=== PATIENT | female | born 1975 | race Caucasian/White ===

== ENCOUNTER 2023-09-06 14:25 | Emergency (ER) | payer OTHER, SELFPAY ==
--- NOTE | 2023-09-06 14:30 | RT.EKG_ITS ---
APPROVED REPORT Exam: Resting ECG Reason for Exam: chest pain Patient Location: E HR:72 bpm ECG Measurements Heart Rate 72 AXIS UT 169 P 59 QRSd 97 QRS 55 QT 389 T 39 QTc 427 Conclusion Sinus rhythm 72 normal axis no stemi
[2023-09-06 14:31] VITALS: BP 134/72; PULSE 79; RESP 18; TEMP 37.2; O2SAT 99
--- NOTE | 2023-09-06 14:46 | ED.GENADUL_ITS ---
Discharge Plan Disposition Patient Disposition: Home Condition: Stable Discharge Details Clinical Impression: Breast infection Primary Care Provider: Unknown,Unknown ED Provider: Karen Hoffman Home Meds and New Rx's Prescriptions: New clindamycin HCl 150 mg capsule 450 mg PO TID 10 Days Qty: 90 0RF ondansetron 4 mg tablet,disintegrating 4 mg PO Q8H PRN (Reason: nausea and vomiting) Qty: 30 0RF No Action fluoxetine 10 mg capsule 10 mg PO DAILY Discharge Instructions Instructions: Mastitis Additional Instructions: * Please start antibiotics as prescribed * Return with worsening symptoms, fever or inability to tolerate the medication * You need to follow-up with surgery clinic, referral has been placed and they should contact you for an appointment early next week Referrals: Kirit Briseno MD [ [facility] STAFF PHYSICIAN] - [facility] General Date/Time Provider Initiated Documentation: 09/06/23 14:55 . Limitations to Documentation: physical limitation . Information obtained by: patient and family . HPI Narrative: 48-year-old female with past medical history of long COVID and chronic Lyme disease presents for evaluation of left breast pain. She reports that last night she started having pain in her left breast. It was associated with swelling, tenderness and warmth. She reports not feeling well, having overall fatigue and chills. Denies any noted fever. Has not taken medication for this. She states that because she has long COVID, she has had recurrent infections in her breast and has had repeated workups for this. She has never had to have a surgical procedure to her breast. She reports that her last mammogram was over a year ago. She states that she was just seen at urgent care prior to this evaluation and was referred to the emergency department for further workup. She states that she was told she has a left ear infection as well and would need antibiotics for both things. Related Data Home Medications Medication Instructions Recorded Confirmed clindamycin HCl 150 mg capsule 450 mg (3 x 150 mg) PO TID 10 days 09/06/23 #90 caps fluoxetine 10 mg capsule 10 mg PO DAILY 09/06/23 09/06/23 ondansetron 4 mg disintegrating 4 mg PO Q8H PRN nausea and 09/06/23 tablet vomiting #30 tabs Previous Rx's Medication Instructions Recorded clindamycin HCl 150 mg capsule 450 mg (3 x 150 mg) PO TID 10 days 09/06/23 #90 caps ondansetron 4 mg disintegrating 4 mg PO Q8H PRN nausea and 09/06/23 tablet vomiting #30 tabs Allergies Allergy/AdvReac Type Severity Reaction Status Date / Time Penicillins Allergy Intermediate Other (See Verified 09/06/23 14:34 Comment) General Stated Complaint: GenMedical RORY: 3 Exam Narrative Exam Narrative: Review of Systems: All systems reviewed & are unremarkable except as noted in HPI and below Well-developed, no acute distress, laying in bed with eyes closed, listless, disengaged with conversation and physical examination Afebrile, hemodynamically stable NCAT PERRL, normal conjunctiva Bilateral TMs without bulging, erythema or effusion, canals normal No cervical adenopathy RRR, no murmur Unlabored respiratory effort, clear bilaterally Right breast with fibrous changes, no palpable mass or tenderness Left breast with 3 x 2 area of erythema at 12:00, there is induration in this area, no appreciable fluctuance, there is a small area of erythema around 2:00 that is approximately 2 x 2, general tenderness of the breast, no overlying skin disruption or open wounds, nipple is not retracted, there is no appreciable nipple drainage Breast examination performed in the presence of senior principal architect nurse Nondistended abdomen Extremities w/o deformity, no cyanosis, no edema no focal neurologic deficits Appropriate mood and affect Course Vital Signs Vital signs: Vital Signs Temperature 37.2 C 09/06/23 14:31 Pulse 79 09/06/23 14:31 Respiratory Rate 18 09/06/23 14:31 Blood Pressure 134/72 09/06/23 14:31 Pulse Oximetry 99 09/06/23 14:31 Temperature 37.2 C 09/06/23 14:31 Temperature Source Oral 09/06/23 14:31 Pulse 79 09/06/23 14:31 Respiratory Rate 18 09/06/23 14:31 Blood Pressure 134/72 09/06/23 14:31 Blood Pressure Position Sitting 09/06/23 14:31 Pulse Oximetry 99 09/06/23 14:31 Oxygen Delivery Method Room Air 09/06/23 14:31 Oxygen Flow Rate 0 09/06/23 14:31 Pain Level 8 09/06/23 14:31 Medical Decision Making Emergent evaluation of left breast pain. Examination is most concerning for infectious etiology of the breast whether this might be abscess, mastitis, inflammatory breast cancer less likely based on presentation. She is afebrile and hemodynamically stable. Her mental status and presentation seems not consistent with a serious bacterial illness, but more consistent with her diagnosis of chronic Lyme and long COVID. She does not have an ear infection as they reported from urgent care. I have advised the patient that there is no ultrasound capabilities available at this time. Her EKG is sinus 72 normal axis no STEMI. I do not suspect ACS or cardiac etiology of her left-sided chest pain. Will get blood work and reassess. Lab work reviewed. There is mild elevation in leukocytosis. Her electrolytes are without derangement. Her CRP is slightly elevated, procalcitonin is not elevated. I do not suspect serious bacterial illness. I advised the patient that she may have early breast abscess, I have referred her to general surgery for follow-up early this week. She has received a dose of IV clindamycin in the emergency department and will be discharged with clindamycin. She understands return precautions. And if this is an abscess, she likely will not do significant improvement on the oral antibiotics. Patient will be discharged in good condition. Medical Records Medical records reviewed: Yes I reviewed the patient's medical records. Lab Data Lab results reviewed: Yes I reviewed the patient's lab results. Quality:SDOH Health Related Social Needs: No Data to Display [facility] All Active Problems (Updated 09/06/23 @ 16:17 by Karen Hoffman MD) Breast infection (Acute) Social History Smoking/Tobacco Use Status: Never Smoking risk assessment performed?: Yes Alcohol Intake: never Substance use type: does not use Housing: house Do you feel safe at home: Yes Do you feel safe in your relationship?: Yes
[2023-09-06] MEDS: ACETAMINOPHEN 1,000 MG/100 ML BTL 400 MG IVPB (15:00)
[2023-09-06 15:19] LABS: Abs Immature Grans 0.04 10^3/uL (0.0-0.06); Absolute Basophil Count 0.05 10^3/uL (0.0-0.2); Absolute Lymphocyte Count 1.91 10^3/uL (1.2-3.4); Basophils % 0.4 %; Eosinophils % 0.7 %; HCT 38.2 % (36.0-46.0); HGB 13.1 g/dL (11.2-15.7); Immature Grans % 0.3 %; Lymphocytes % 13.9 %; MCH 30.7 pg (27.0-33.0); MCHC 34.3 % (32.0-36.0); MCV 90 fL (80-95); MPV 9.4 fL (8.0-11.0); Monocytes % 6.9 %; Neutrophils % 77.8 %; Platelet Count 277 10^3/uL (130-400); RBC 4.27 10^6/uL (3.93-5.22); RDW 12.5 % (11.7-14.6); RDW-SD 41.4 fL; WBC 13.71 10^3/uL (4.4-10.8)
[2023-09-06 15:24] LABS: ESR 4 mm/hr (0-20)
[2023-09-06 15:29] LABS: Absolute Monocyte Count 0.95 10^3/uL (0.1-0.8); Absolute Neutrophil Count 10.67 10^3/uL (1.2-6.7)
[2023-09-06 15:35] LABS: ALT 22 U/L (14-59); AST 13 U/L (15-37); Albumin 3.7 g/dL (3.4-5.0); Alkaline Phosphatase 56 U/L (46-116); Anion Gap 8.1 mmol/L (3-11); BUN 6 mg/dL (7-18); Bilirubin, Total 0.62 mg/dL (0.2-1.0); C-Reactive Protein 2.91 mg/dL (<or=0.5); CO2 27.9 mmol/L (21.0-32.0); CREATININE 0.7 mg/dL (0.55-1.02); Calcium 8.6 mg/dL (8.5-10.1); Chloride 103 mmol/L (98-107); Estimated GFR 105.95 (mL/min/1.73m2); Glucose 98 mg/dL (74-106); Potassium 3.9 mmol/L (3.5-5.1); Sodium 139 mmol/L (136-145); Total Protein 6.7 g/dL (6.4-8.2)
[2023-09-06 15:51] LABS: Procalcitonin < 0.1 ng/mL
[2023-09-06] MEDS: CLINDAMYCIN 600 MG/50 ML BAG 100 MG IVPB (16:13)
[2023-09-06] MEDS: Ondansetron 4 MG/2 ML VIAL IVP (16:13)
[2023-09-06 16:40] VITALS: BP 134/72; PULSE 79; RESP 18; TEMP 37.2; O2SAT 99
--- NOTE | 2023-09-06 17:35 | NUR.NOTE ---
Referral to surgery for a breast abscess. Follow up [facility]. Referred by Dr. Hoffman. Nursing Note:
== END 2023-09-06 17:03 | disposition home or self-care (01) ==
PROVIDERS: Emergency Provider Emergency Medicine
DX: N61.0 Mastitis without abscess (principal)
CPT/HCPCS: 36415; 80053; 81025; 84145; 85652; 93005; 96365; 96367; 96375; 99284; 85025; 86140; 93010; 99283; J0131; J0737; J2405

== ENCOUNTER 2023-09-09 18:21 | Observation (INO) | payer OTHER, SELFPAY ==
--- NOTE | 2023-09-09 18:25 | W.PM.HP.N ---
Date of service: 09/09/23 Time of Service: 18:32 Assessment and Plan Assessment and plan (1) Breast abscess: Status: Acute Assessment and plan: This seems most consistent with a left breast abscess that has not adequately responded to enteral antibiotics. Will admit for intravenous antibiotics and formal ultrasound left breast to rule out other pathology. If there is significant abscess cavity, then we will plan for incision and drainage assuming she makes no improvement with the intravenous clindamycin. History of Present Illness History of Present Illness Chief Complaint: Left breast pain Narrative: Cheyenne is a 48-year-old woman who initially presented to the emergency department on the sixth with a chief complaint of pain in her left breast. This was similar in nature to breast infections that she has had on the contralateral side. She was found have a leukocytosis of 13,000, and discharged home with oral clindamycin. Since her discharge from the emergency department, she has had some increased fatigue and subjective fevers. She was able to start the clindamycin. She does think that the erythema has improved a little bit, but the breast is still quite painful and tender to the touch. Fatigue and lethargy are concerning for ongoing sepsis. Will admit for intravenous antibiotics, formal ultrasound, and possible incision and drainage of abscess. Review of Systems Constitutional Constitutional: Reports fatigue, Reports fever(s), Reports lethargy, Reports malaise and Reports poor appetite Eyes Eyes: Reports system reviewed and no additional complaints, except as documented ENT Comments: Swollen lymph nodes Cardiovascular Cardiovascular: Reports system reviewed and no additional complaints, except as documented Respiratory Respiratory: Denies chest congestion and Denies cough Gastrointestinal Gastrointestinal: Reports system reviewed and no additional complaints, except as documented Integumentary/Breasts Skin/Breast: Reports breast swelling and Reports breast mass Neurologic Neurologic: Reports system reviewed and no additional complaints, except as documented Endocrine Endocrine: Reports fatigue Hematologic/Lymphatic Hematologic/Lymphatic: Reports lymphadenopathy PFSH All Active Problems (Updated 09/09/23 @ 15:49 by KARYN Colon) Breast abscess (Acute) Infection of left breast (Acute) Breast cyst (Acute) Breast infection (Acute) Social History Smoking/Tobacco Use Status: Never Smoking risk assessment performed?: Yes Alcohol Intake: never Substance use type: does not use Housing: house Do you feel safe at home: Yes Do you feel safe in your relationship?: Yes Meds Allergies and Home Medications Allergies Allergy/AdvReac Type Severity Reaction Status Date / Time Penicillins Allergy Intermediate Other (See Verified 09/06/23 14:34 Comment) Home Medications Medication Instructions Recorded Confirmed Type clindamycin HCl 150 mg capsule 450 mg (3 x 150 mg) PO TID 10 days 09/06/23 09/09/23 Rx #90 caps fluoxetine 10 mg capsule 10 mg PO DAILY 09/06/23 09/09/23 History ondansetron 4 mg disintegrating 4 mg PO Q8H PRN nausea and 09/06/23 09/09/23 Rx tablet vomiting #30 tabs Exam Const General: cooperative, comfortable and ill appearing Nutritional Appearance: average body habitus Orientation: alert, awake and oriented x3 HENMT Head: normal to inspection Eyes General: appearance normal, both eyes and all related structures Neck Neck: normal visual inspection, full ROM and supple Other: I am not able to appreciate cervical lymphadenopathy Chest Other: Erythema over the upper outer quadrant of the left breast with induration of the soft tissues. Mild tender left axillary lymphadenopathy Resp Effort & Inspection: normal respiratory effort Auscultation: clear to auscultation bilaterally Cardio Rate: regular rate Rhythm: regular rhythm Heart Sounds: S1 normal and S2 normal Results Labs 09/10/23 Unknown Time Spent Time spent with Patient: 40-54 minutes Time was spent: preparing to see the patient(eg.review tests), ordering medications,tests, procedures, indepentently interpreting results, counseling the patient and care coordination
[2023-09-09 19:34] VITALS: BP 112/68; PULSE 67; RESP 19; TEMP 37; O2SAT 100
[2023-09-09 20:52] VITALS: BP 112/68; PULSE 67; RESP 18; TEMP 37; O2SAT 100
[2023-09-09 21:12] VITALS: BP 112/68; PULSE 67; RESP 19; TEMP 37; O2SAT 100
[2023-09-09] MEDS: Acetaminophen 500 MG TAB 1000 MG PO (22:11)
[2023-09-09] MEDS: Enoxaparin 40 MG/0.4 ML SYR SC (22:11)
[2023-09-09] MEDS: Lactated Ringers 1,000 ML 30 ML IV (22:24)
[2023-09-09] MEDS: Normal Saline Flush 10 ML SYR IVP (22:24)
[2023-09-09] MEDS: CLINDAMYCIN 900 MG/50 ML BAG 50 MG IVPB (22:53)
[2023-09-09] MEDS: Ondansetron 4 MG/2 ML VIAL IVP (22:53)
[2023-09-09 23:25] VITALS: BP 100/58; PULSE 69; RESP 19; TEMP 36.9; O2SAT 98
--- NOTE | 2023-09-10 | DI.US_ITS ---
Exam(s) US BREAST LT COMPLETE EXAM: US BREAST LT COMPLETE CLINICAL HISTORY: Abscess TECHNIQUE: Ultrasound left breast performed using standard protocol. COMPARISON: No exams were available for comparison FINDINGS: In the area of patient tenderness, there is an irregular hypoechoic collection measuring 1.5 x 2.0 x 2.2 cm which is suspicious for an abscess. It is located in the 11 o'clock position of the upper out er quadrant, 4 cm from the nipple. Multiple cysts were noted. There is no ductal dilatation. No s uspicious solid masses or skin edema. There is a lymph node in the upper outer quadrant, 1 o'clock p osition 7 cm from the nipple which appears hyperemic, consistent with a reactive lymph node. IMPRESSION: Findings suspicious for 2.2 centimeter abscess in the upper inner quadrant. Reactive lymph node in t he upper outer quadrant. DATA REPOSITORY:
[2023-09-10] MEDS: Acetaminophen 500 MG TAB 1000 MG PO ×3 (03:55→20:51)
[2023-09-10] MEDS: CLINDAMYCIN 900 MG/50 ML BAG 50 MG IVPB ×3 (05:54→20:51)
[2023-09-10 07:34] LABS: Abs Immature Grans 0.04 10^3/uL (0.0-0.06); Absolute Basophil Count 0.06 10^3/uL (0.0-0.2); Absolute Eosinophil Count 0.31 10^3/uL (0.0-0.7); Absolute Lymphocyte Count 2.14 10^3/uL (1.2-3.4); Absolute Monocyte Count 0.74 10^3/uL (0.1-0.8); Absolute Neutrophil Count 6.51 10^3/uL (1.2-6.7); Basophils % 0.6 %; Eosinophils % 3.2 %; HCT 32.2 % (36.0-46.0); Immature Grans % 0.4 %; Lymphocytes % 21.8 %; MCH 30.5 pg (27.0-33.0); MCHC 34.2 % (32.0-36.0); MCV 89 fL (80-95); MPV 9.9 fL (8.0-11.0); Monocytes % 7.6 %; Neutrophils % 66.4 %; Platelet Count 256 10^3/uL (130-400); RBC 3.61 10^6/uL (3.93-5.22); RDW 12.2 % (11.7-14.6); RDW-SD 40.1 fL
[2023-09-10 07:58] VITALS: BP 101/62; PULSE 62; RESP 16; TEMP 37.1; O2SAT 96
--- NOTE | 2023-09-10 08:10 | W.PM.PROGNOT ---
Date of Service Date of service: 09/10/23 Time of Service: 08:10 Assessment and Plan Assessment and plan (1) Breast abscess: Status: Acute Assessment and plan: NPO Continue IV clindamycin WBC normalized Awaiting left breast US scheduled for later today Strongly encouraged activity OOB, ambulation in the amin way and sitting in the chair Subjective Subjective Interval history since last seen: Arrive with Keisha resting comfortably. She states she is feeling better this morning. Describes that she was able to get some sleep last night. Exam Const General: cooperative, healthy appearing and comfortable Orientation: alert and oriented x3 Resp Effort & Inspection: normal respiratory effort, no audible wheezes and no cough Objective Last Vital Signs Temp 37.1 C 09/10/23 07:58 Pulse 62 09/10/23 07:58 Resp 16 09/10/23 07:58 BP 101/62 09/10/23 07:58 Pulse Ox 96 09/10/23 07:58 Laboratory Results - last 24 hr 09/10/23 06:35 WBC 9.80 RBC 3.61 L Hgb 11.0 L Hct 32.2 L MCV 89 MCH 30.5 MCHC 34.2 RDW 12.2 Plt Count 256 MPV 9.9 Immature Gran % 0.4 Neutrophils % 66.4 Lymphocytes % 21.8 Monocytes % 7.6 Eosinophils % 3.2 Basophils % 0.6 Nucleated RBC % 0.0 Absolute Neutrophils 6.51 Absolute Lymphocytes 2.14 Absolute Monocytes 0.74 Absolute Eosinophils 0.31 Absolute Basophils 0.06 Time Spent with Patient Time Spent with Patient: <25 minutes Time was spent: preparing to see the patient(eg.review tests), indepentently interpreting results and counseling the patient
[2023-09-10] MEDS: Fluconazole 150 MG TAB PO (10:50)
[2023-09-10] MEDS: Ondansetron 4 MG/2 ML VIAL IVP ×2 (10:56→20:57)
[2023-09-10] MEDS: Normal Saline Flush 10 ML SYR IVP ×2 (10:57→20:52)
--- NOTE | 2023-09-10 11:35 | PHA.REVIEW2 ---
Pharmacy Admission Review Admission Clinical Review Admission Pharmacy Review: Breast abscess (Acute) Penicillins Allergy (Intermediate, Verified 09/06/23 14:34) Other (See Comment) Resuscitation Status Full Code Height 5 ft 8 in Weight 78 kg Comments Comments/Follow Ups: Watch VS, labs and for med changes. Pharmacy Admission Review Renal Dosing Medications needing adjustments: Reviewed (Crcl ~106 mL/min using SCr from 09/06/23, current meds okay) Anticoagulation Anticoagulation: Hgb 11.0 g/dL (11.2-15.7) L 09/10/23 06:35 Hct 32.2 % (36.0-46.0) L 09/10/23 06:35 Plt Count 256 10^3/uL (130-400) 09/10/23 06:35 DVT Prophylaxis: Reviewed Medications: Enoxaparin Opiate Usage Evaluate Pain Scale/Pains Meds: Reviewed Scheduled Bowel Reg ordered if on Opiates?: Yes Relevant Labs Electrolytes, C-Reactive P, ESR: N/A DM Control DM Control: N/A Cardiac Review BP, HR, EF%: Reviewed (BP and HR within normal limits) QTc Review QTc: N/A IV to PO Switch IV Medications: Reviewed Home Meds Home Med List reviewed: Reviewed Relevent Home Meds Not ordered & why?: fluoxetine Current Meds Current Medication Order Review: Reviewed Pharmacy Antibiotic Review Pharmacy Antibiotic Activity: Reviewed, no change Comments: IV clindamycin ordered for abscess Comments Comments/Follow Ups: Watch VS, labs and for med changes.
[2023-09-10 15:07] VITALS: BP 109/72; PULSE 67; RESP 18; TEMP 36.8; O2SAT 100
--- NOTE | 2023-09-10 15:54 | INITIAL_ITS ---
Date of service: 09/10/23 Time of Service: 15:55 Care Management Initial Assmt Initial Assessment Reason for Hospitalization: Left Breast Abscess Functional Status/Living Situation Patient Presentation: Up independently Town of Residence: [place], [place] Resides with: Spouse (Vish) Significant Other/Family: Local (to patient, not [place]. ) Instrumental Activities of Daily Living (ADLs): Independent Medications Medication Management: No Issues/Barriers identified Advance Directives Advance Directives: Do you have an Advance Directive: N 09/09/23 19:26 AD On File at [facility]: N 09/09/23 19:26 Date Asked 09/09/23 09/09/23 19:26 AD Date Reviewed COLST On File at [facility] COLST Date Scanned Code Status Resuscitation Status Full Code Portal Pt does not currently have a portal and education provided: No Portal Education: Other (Out of area) Insurance Coverage/Financial Issues Insurance: HPI: Non [facility] ACO Member: No Care Team Visit Care Team Role Provider Type Unknown Unknown Primary Care Provider STAFF PHYSICIAN Sukumar Lombardo MD Admit Provider [facility] STAFF PHYSICIAN Attending Provider Discharge Potential Discharge Needs: Consult and Imaging/labs (Ultrasound) Anticipated Barriers to Discharge: Medical Status (Oral abx treatment failed in community) and Treatment delay (Ultrasound ) Patient/Family Education Needs: Review discharge instructions, discuss Ask Me Three Transportation: Private vehicle Plan: Awaiting ultrasound to determine plan of care. Patient is independent, up ad cecilio. She is requiring IV ABX at this time. CM following. [facility] All Active Problems (Updated 09/09/23 @ 15:49 by KARYN Colon) Breast abscess (Acute) Infection of left breast (Acute) Breast cyst (Acute) Breast infection (Acute) Social History Smoking/Tobacco Use Status: Never Smoking risk assessment performed?: Yes Alcohol Intake: never Substance use type: does not use Housing: house Do you feel safe at home: Yes Do you feel safe in your relationship?: Yes SDOH(Care Management) Screening Will the Patient Participate in the Screening?: Yes Do you worry about having a steady place to live?: no In the past 12 months, have you had to go without electric, gas, oil or water in your home?: no Have you or anyone in your house had to go without enough food to eat?: no Has lack of transportation kept you from medical appointments or from doing things needed for daily living?: no Has anyone in your support network made you feel unsafe for any reason?: no
--- NOTE | 2023-09-10 16:50 | CHAPLAIN ---
Keisha was resting in bed when I visited. She told me about in infection. She's had COVID four times she said, and has continued to get infections. 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 She and her two kids are visiting her mom in [facility]. Keisha has visited here since she was young and her kids enjoy being here. Keisha has a strong commitment to her rohith and a morning ritual of prayer and conversation with God. I explained my role and offered support.
[2023-09-10 19:37] VITALS: BP 108/70; PULSE 75; RESP 16; TEMP 37.1; O2SAT 99
[2023-09-10] MEDS: Melatonin 3 MG TAB PO (20:51)
[2023-09-10] MEDS: Enoxaparin 40 MG/0.4 ML SYR SC (20:52)
--- NOTE | 2023-09-10 21:03 | W.PM.PROGNOT ---
Date of Service Date of service: 09/10/23 Time of Service: 11:50 Assessment and Plan Assessment and plan (1) Breast abscess: Status: Acute Assessment and plan: Continue with intravenous antibiotics overnight, and repeat a CBC tomorrow. If the white blood cell count remains normal, and hemodynamics are favorable, will plan to discharge home, and continue oral antibiotics. Subjective Subjective Interval history since last seen: Keisha says that she is feeling much better. Energy is returning and the pain in her breast has improved. Exam Chest Other: Left breast remains swollen, and batch or continuous still operator. Less erythema on the skin. Objective Last Vital Signs Temp 98.8 F 09/10/23 19:37 Pulse 75 09/10/23 19:37 Resp 16 09/10/23 19:37 BP 108/70 09/10/23 19:37 Pulse Ox 99 09/10/23 19:37 Laboratory Results - last 24 hr 09/10/23 06:35 WBC 9.80 RBC 3.61 L Hgb 11.0 L Hct 32.2 L MCV 89 MCH 30.5 MCHC 34.2 RDW 12.2 Plt Count 256 MPV 9.9 Immature Gran % 0.4 Neutrophils % 66.4 Lymphocytes % 21.8 Monocytes % 7.6 Eosinophils % 3.2 Basophils % 0.6 Nucleated RBC % 0.0 Absolute Neutrophils 6.51 Absolute Lymphocytes 2.14 Absolute Monocytes 0.74 Absolute Eosinophils 0.31 Absolute Basophils 0.06 Time Spent with Patient Time Spent with Patient: <25 minutes Time was spent: preparing to see the patient(eg.review tests), indepentently interpreting results and counseling the patient
[2023-09-10 23:42] VITALS: BP 104/66; PULSE 59; RESP 19; TEMP 36.9; O2SAT 97
[2023-09-11] MEDS: CLINDAMYCIN 900 MG/50 ML BAG 50 MG IVPB ×3 (04:50→13:20)
[2023-09-11] MEDS: Acetaminophen 500 MG TAB 1000 MG PO ×2 (04:50→12:21)
[2023-09-11 06:59] LABS: HGB 11.3 g/dL (11.2-15.7); MCH 30.4 pg (27.0-33.0); MCHC 34.2 % (32.0-36.0); MCV 89 fL (80-95); MPV 9.7 fL (8.0-11.0); Platelet Count 320 10^3/uL (130-400); RBC 3.72 10^6/uL (3.93-5.22); RDW 12.2 % (11.7-14.6); RDW-SD 40.1 fL
[2023-09-11 08:05] VITALS: BP 117/61; PULSE 65; RESP 16; TEMP 37.1; O2SAT 98
[2023-09-11] MEDS: Normal Saline Flush 10 ML SYR IVP (08:54)
[2023-09-11] MEDS: Psyllium PKT 1 EACH PO (08:54)
--- NOTE | 2023-09-11 09:50 | W.PM.PROGNOT ---
Date of Service Date of service: 09/11/23 Time of Service: 09:50 Assessment and Plan Assessment and plan (1) Breast abscess: Status: Acute Assessment and plan: Normalization of WBC, significant improvement in Keisha's symptoms. Regular diet Continue IV clindamycin dosing for today, transtion to PO clindamycin Strongly encouraged activity OOB, ambulation in the amin way and sitting in the chair Tentatively d/c home later today. Subjective Subjective Interval history since last seen: Keisha reports that she is feeling significantly better this morning. She denies any nausea, vomiting, fevers or chills. Exam Const General: cooperative, healthy appearing and comfortable Orientation: alert and oriented x3 Chest Other: Left breast- No erythema Significant induration on palpation. Lymphadenopathy noted in left axilla Resp Effort & Inspection: normal respiratory effort, no audible wheezes and no cough Objective Last Vital Signs Temp 37.1 C 09/11/23 08:05 Pulse 65 09/11/23 08:05 Resp 16 09/11/23 08:05 BP 117/61 09/11/23 08:05 Pulse Ox 98 09/11/23 08:05 Laboratory Results - last 24 hr 09/11/23 06:12 WBC 9.00 RBC 3.72 L Hgb 11.3 Hct 33.0 L MCV 89 MCH 30.4 MCHC 34.2 RDW 12.2 Plt Count 320 MPV 9.7 Time Spent with Patient Time Spent with Patient: <25 minutes Time was spent: preparing to see the patient(eg.review tests), obtaining and/or reviewing separately otained hiistory and counseling the patient
--- NOTE | 2023-09-11 13:11 | DSE_ITS ---
Date of service: 09/11/23 Time of Service: 13:11 DS: Diagnosis Discharge Diagnosis (1) Breast abscess: Status: Acute Asessment and Plan: d/c home Discharge Plan Disposition Patient Disposition: Home Condition: Improving Discharge Details Reason For Visit: left breast abscess Admit Date/Time: 09/09/23 18:21 Admit Provider: Sukumar Lombardo Attending Provider: Sukumar Lombardo Primary Care Provider: Unknown,Unknown Hospital Course Hospital Course: Keisha is 48 years old. She developed swelling and pain of the left breast. She had a leukocytosis and was discharged from the ER with enteral clindamycin. Although she was able to start her antibiotics, she continued to feel lethargic and feverish. She was seen in the office, and a limited ultrasound was performed confirming the presence of fluid collection in the left breast consistent with a left breast abscess. She was admitted to the hospital, started on intravenous clindamycin. Within 24 hours, she had an improvement in her leukocytosis, and rapidly began to feel better. She underwent a formal ultrasound that again seemed most consistent with a simple left breast abscess. After another night of intravenous antibiotics she was feeling much better. Pain was improving. She was discharged home to complete her oral clindamycin regimen. Home Meds and New Rx's Prescriptions: No Action fluoxetine 10 mg capsule 10 mg PO DAILY clindamycin HCl 150 mg capsule 450 mg PO TID 10 Days Qty: 90 0RF ondansetron 4 mg tablet,disintegrating 4 mg PO Q8H PRN (Reason: nausea and vomiting) Qty: 30 0RF Discharge Instructions Additional Instructions: Keisha, it was a pleasure meeting you and your , and I am glad that you are starting to feel better. As we discussed, you seem to have a simple abscess of the left breast, Which is now responding more favorably to the antibiotics. Hopefully, with the intravenous doses that you received, it was enough to help you get ahead of the infection. I am optimistic that the oral antibiotics will take care of it at this point. Your previously prescribed 450 mg (3 150 mg tablets) 3 times every day. I would like to increase this dosing to 4 times a day, or every 6 hours, which is more roma to what you are receiving in the hosp ital by way of the intravenous. Like we talked about beforehand, I would plan to continue this for the next 7 days, or as close as you can get with the prescription that you have left.. I think that your prescription will cover this. If we are way off, please let me know, and I can always call in a prescription wherever you are at the time. Please let me know if you start to feel sick again, with fevers, malaise, or just generally feeling crummy like you had been. I would expect your breast to remain fairly tender and painful over the next few days, but it should be getting a little easier day by day. If you need anything at all, or have any questions at all, please feel free to call me. My cell phone is [phone], or you can reach the office at [phone] it is probably a smart move to let her primary care doctor know what has been going on regardless of how you are feeling just to keep them up-to-date. I am more than happy to have the office set up an appointment for you when you are back in town if you find that helpful. Alternatively, if you are feeling back to your normal self, there is no need to specifically come in to see us. Activity:: Activity as Tolerated Equipment/Supplies:: No Equipment Needed Diet:: As Tolerated DS: Summary Time Spent with Patient providing and/or coordinating discharge services: Less than 30 minutes Status at Discharge Functional status at discharge: independent ambulation Overall status at discharge: patient is progressing back to baseline Mental Status: mental status grossly normal Speech and Movement: speech and movement normal Mood: congruent mood Affect: normal affect Quality:SDOH Health Related Social Needs: No Data to Display Exam Chest Other: The left breast is still a little bit swollen and tender with some underlying induration. Erythema on the skin is completely resolved. Lymphadenopathy seems a little better. Psych Mental Status: mental status grossly normal Speech and Movement: speech and movement normal Mood: congruent mood Affect: normal affect DS: Data Vitals/I&O Vitals and I&O: Vital Signs Temperature 98.8 F 09/11/23 08:05 Temperature Source Temporal Artery Scan 09/11/23 08:05 Pulse 65 09/11/23 08:05 Pulse Rhythm Regular 09/11/23 09:07 Respiratory Rate 16 09/11/23 08:05 Respiratory Effort Normal, Non-Labored 09/11/23 09:07 Respiratory Depth Normal 09/11/23 09:07 Respiratory Pattern Normal 09/11/23 09:07 Blood Pressure 117/61 09/11/23 08:05 Pulse Oximetry 98 09/11/23 08:05 Oxygen Delivery Method Room Air 09/11/23 08:05 Oxygen Flow Rate 0 09/11/23 08:05 Pain Level 0 09/11/23 08:05 Comment patient breathing freely on room air 09/09/23 21:12 Intake & Output 09/10/23 09/11/23 09/11/23 23:59 11:59 23:59 Intake Total 460 / 860.5 100 / 100 Balance 460 / 860.5 100 / 100 Intake: IV 100 / 500.5 100 / 100 Oral 360 / 360 Other: Urine Appearance Clear Comment Independent. Voiding Methods Toilet Data Completed and Pending Labs on day of discharge: Labs from last 24 hours 09/11/23 06:12 WBC 9.00 RBC 3.72 L Hgb 11.3 Hct 33.0 L MCV 89 MCH 30.4 MCHC 34.2 RDW 12.2 Plt Count 320 MPV 9.7 PFSH All Active Problems Breast abscess (Acute) Infection of left breast (Acute) Breast cyst (Acute) Breast infection (Acute) Social History Smoking/Tobacco Use Status: Never Smoking risk assessment performed?: Yes Alcohol Intake: never Substance use type: does not use Housing: house Do you feel safe at home: Yes Do you feel safe in your relationship?: Yes Time Spent with Patient Time Spent with Patient: <45 minutes Time was spent: preparing to see the patient(eg.review tests), indepentently interpreting results and counseling the patient
--- NOTE | 2023-09-11 13:59 | CMDISCH_ITS ---
Date of service: 09/11/23 Time of Service: 13:59 LACE Index Scoring Tool Questions: Length of Stay (in days): 2 Was the patient admitted via the E.D.?: No E.D. Visits: 1 Answers: Total Score: 3 Risk of Readmission: Low Risk Care Management Discharge Plan Reason for Hospitalization: left breast abscess Discharge Plan: Keisha will return home with no new services. Her will drive her home via private vehicle. She will follow up with surgical services and discharge plan of care. Patient/Family Education Needs: Review discharge instructions and limitations, discussion of self care needs including ask me three. [facility] Health Related Social Needs: No Data to Display
== END 2023-09-11 15:24 | disposition home or self-care (01) ==
PROVIDERS: Admitting Provider Surgery; Visit Provider Surgery
DX: N61.1 Abscess of the breast and nipple (principal); N64.4 Mastodynia; D72.829 Elevated white blood cell count, unspecified
CPT/HCPCS: 36415; 76642; 85027; 96365; 96366; 96372; 96375; 96376; J1650; 85025; G0378; J0737; J2405

== ENCOUNTER 2024-09-08 10:31 | Emergency (ER) | payer BC, SELFPAY ==
[2024-09-08 10:37] VITALS: BP 131/68; PULSE 64; RESP 18; TEMP 36.7; O2SAT 98
--- NOTE | 2024-09-08 11:00 | DI.US_ITS ---
Exam(s) US BREAST LT LIMITED EXAM: US BREAST LT LIMITED CLINICAL HISTORY: eval abscess, left upper outer quad TECHNIQUE: Ultrasound left breast performed using standard protocol. COMPARISON: US US BREAST LT COMPLETE from 09/10/2023 FINDINGS: No solid masses, hypoechoic foci, areas of abnormal shadowing, or areas of skin thickening. The region of the palpable abnormality corresponds to a 2.8 centimeter cyst. No features to suggest abscess. No visible hyperemia in the surrounding tissue. There is an additional 9 millimeter cyst in the 1 o'clock position 5 cm from the nipple. The cyst with layering debris is noted in the 2 o'clock position 8 cm from the nipple measuring 11 millimeters in maximal dimension. There are dilated ducts in the subareolar region, dilated to 5 millimeters. IMPRESSION: 2.8 centimeter cyst corresponds to the palpable abnormality. No abscess is identified. There are dilated ducts in the subareolar region. BI-RADS Category 2 - Benign Findings DATA REPOSITORY:
[2024-09-08] MEDS: ACETAMINOPHEN 1,000 MG/100 ML BAG 400 MG IVPB (12:12)
[2024-09-08 12:21] LABS: Abs Immature Grans 0.03 10^3/uL (0.0-0.06); HCT 42.9 % (36.0-46.0); HGB 14.6 g/dL (11.2-15.7); Immature Grans % 0.4 %; MCH 31.2 pg (27.0-33.0); MCHC 34.0 % (32.0-36.0); MCV 92 fL (80-95); MPV 9.6 fL (8.0-11.0); Platelet Count 279 10^3/uL (130-400); RBC 4.68 10^6/uL (3.93-5.22); RDW 12.5 % (11.7-14.6); RDW-SD 42.0 fL; WBC 7.29 10^3/uL (4.4-10.8)
[2024-09-08 12:25] LABS: ESR 3 mm/hr (0-20)
[2024-09-08] MEDS: CLINDAMYCIN 600 MG/50 ML BAG 100 MG IVPB (12:32)
[2024-09-08 12:34] LABS: ALT 24 U/L (14-59); AST 14 U/L (15-37); Albumin 4.3 g/dL (3.4-5.0); Alkaline Phosphatase 61 U/L (46-116); Anion Gap 11.3 mmol/L (3-11); BUN 8 mg/dL (7-18); Bilirubin, Total 0.9 mg/dL (0.2-1.0); C-Reactive Protein < 0.50 mg/dL (<or=0.5); CO2 27.7 mmol/L (21.0-32.0); Calcium 9.0 mg/dL (8.5-10.1); Chloride 103 mmol/L (98-107); Estimated GFR 105.30 (mL/min/1.73m2); Glucose 101 mg/dL (74-106); Potassium 3.6 mmol/L (3.5-5.1); Sodium 142 mmol/L (136-145); Total Protein 7.6 g/dL (6.4-8.2)
[2024-09-08 12:43] LABS: Procalcitonin < 0.10 ng/mL
[2024-09-08 13:07] LABS: COVID-19 PCR Negative (Negative); RSV PCR Negative (Negative)
[2024-09-08 13:55] VITALS: BP 116/74; PULSE 57; RESP 16; O2SAT 98
--- NOTE | 2024-09-08 14:32 | W.ED.GENAD ---
Discharge Plan Disposition Patient Disposition: Home Condition: Stable Discharge Details Clinical Impression: Breast cyst Primary Care Provider: Unknown,Unknown ED Provider: Karen Hoffman Home Meds and New Rx's Prescriptions: New clindamycin HCl [Cleocin HCl] 150 mg capsule 450 mg PO TID 7 Days Qty: 63 0RF No Action fluoxetine 10 mg capsule 10 mg PO DAILY ondansetron 4 mg tablet,disintegrating 4 mg PO Q8H PRN (Reason: nausea and vomiting) Qty: 30 0RF Discharge Instructions Additional Instructions: NO SIGNS OF INFECTION AT THIS TIME, LAB WORK IS ALL NORMAL ULTRASOUND SHOWS A CYST, BUT NOT CONSISTENT WITH ABSCESS COVID TEST NEGATIVE MONITOR SYMPTOMS CLOSELY AND FOLLOW UP WITH PCP HPI General Date/Time Provider Initiated Documentation: 09/08/24 10:45. Limitations to Documentation: no limitations. Information obtained by: patient. HPI Narrative: 49-year-old female with past medical history of breast abscesses presents for evaluation of fever, left breast pain. She reports that 4 days ago she started having some fever body aches and she is also noted that she had an area of discomfort swelling tenderness on her left breast. She reports that she has had prior abscess and was concerned for that. She states that she also had an exposure to a family member that was having URI symptoms. She states that she has not been having any URI symptoms, but did measure temperature of 101 at home. She reports that she has pain localized to the left breast there is a discrete noted mass. She reports that with prior abscesses she has had overlying skin changes, but has not noted that today. Related Data Home Medications ?Medication ?Instructions ?Recorded ?Confirmed fluoxetine 10 mg capsule 10 mg PO DAILY 09/06/23 09/08/24 ondansetron 4 mg disintegrating 4 mg PO Q8H PRN nausea and 09/06/23 09/08/24 tablet vomiting #30 tabs clindamycin HCl 150 mg capsule 450 mg (3 x 150 mg) PO TID 7 days 09/08/24 (Cleocin HCl) #63 caps Previous Rx's ?Medication ?Instructions ?Recorded ondansetron 4 mg disintegrating 4 mg PO Q8H PRN nausea and 09/06/23 tablet vomiting #30 tabs clindamycin HCl 150 mg capsule 450 mg (3 x 150 mg) PO TID 7 days 09/08/24 (Cleocin HCl) #63 caps Allergies Allergy/AdvReac Type Severity Reaction Status Date / Time Penicillins Allergy Intermediate Other (See Verified 09/08/24 10:41 Comment) General Stated Complaint: GenMedical RORY: 3 Exam Narrative Exam Narrative: Review of Systems: All systems reviewed & are unremarkable except as noted in HPI and below Well-developed, no acute distress NCAT Afebrile PERRL, normal conjunctiva RRR Unlabored respiratory effort clear bilaterally Left breast with a 2 x 2 area of firmness and tenderness, feels discrete, does not feel fluctuant, no overlying skin changes Course Vital Signs Vital signs: Vital Signs Temperature 36.7 C 09/08/24 10:37 Pulse 64 09/08/24 10:37 Respiratory Rate 18 09/08/24 10:37 Blood Pressure 131/68 09/08/24 10:37 Pulse Oximetry 98 09/08/24 10:37 Temperature 36.7 C 09/08/24 10:37 Temperature Source Tympanic 09/08/24 10:37 Pulse 57 L 09/08/24 13:55 Respiratory Rate 16 09/08/24 13:55 Blood Pressure 116/74 09/08/24 13:55 Blood Pressure Position Supine 09/08/24 10:37 Pulse Oximetry 98 09/08/24 13:55 Oxygen Delivery Method Room Air 09/08/24 10:37 Oxygen Flow Rate 0 09/08/24 10:37 Pain Level 4 09/08/24 10:37 Lab/Test Results Lab/Test Results: Laboratory Tests Range/Units 09/08/24 09/08/24 12:02 12:16 WBC (4.4-10.8) 10^3/uL 7.29 RBC (3.93-5.22) 10^6/uL 4.68 Hgb (11.2-15.7) g/dL 14.6 Hct (36.0-46.0) % 42.9 MCV (80-95) fL 92 MCH (27.0-33.0) pg 31.2 MCHC (32.0-36.0) % 34.0 RDW (11.7-14.6) % 12.5 Plt Count (130-400) 10^3/uL 279 MPV (8.0-11.0) fL 9.6 Immature Gran % % 0.4 Neutrophils % % 63.8 Lymphocytes % % 25.5 Monocytes % % 6.2 Eosinophils % % 3.3 Basophils % % 0.8 Nucleated RBC % (0.0-0.3) % 0.0 Absolute Neutrophils (1.2-6.7) 10^3/uL 4.65 Absolute Lymphocytes (1.2-3.4) 10^3/uL 1.86 Absolute Monocytes (0.1-0.8) 10^3/uL 0.45 Absolute Eosinophils (0.0-0.7) 10^3/uL 0.24 Absolute Basophils (0.0-0.2) 10^3/uL 0.06 ESR (0-20) mm/hr 3 Sodium (136-145) mmol/L 142 Potassium (3.5-5.1) mmol/L 3.6 Chloride (98-107) mmol/L 103 Carbon Dioxide (21.0-32.0) mmol/L 27.7 Anion Gap (3-11) mmol/L 11.3 H BUN (7-18) mg/dL 8 Creatinine (0.55-1.02) mg/dL 0.7 Est GFR (CKD-EPI 2020) (mL/min/1.73m2) 105.30 Glucose (74-106) mg/dL 101 Calcium (8.5-10.1) mg/dL 9.0 Total Bilirubin (0.2-1.0) mg/dL 0.9 AST (15-37) U/L 14 L ALT (14-59) U/L 24 Alkaline Phosphatase (46-116) U/L 61 C-Reactive Protein (<or=0.5) mg/dL < 0.50 Total Protein (6.4-8.2) g/dL 7.6 Albumin (3.4-5.0) g/dL 4.3 Procalcitonin ng/mL < 0.10 COVID-19 Source Nasopharynx SARS-CoV-2 (PCR) (Negative) Negative Influenza Type A (PCR) (Negative) Negative Influenza Type B (PCR) (Negative) Negative RSV (PCR) (Negative) Negative Medical Decision Making Emergent evaluation of fever and left breast pain. Initial differential includes breast abscess, cellulitis, malignancy, viral illness. Patient has a benign exam other than the small lesion on her breast that is tender. She has had prior infections so I am suspicious this is a recurrent abscess. She is afebrile and hemodynamically stable at this time. Lab work was obtained, there is no leukocytosis or anemia, there is no electrolyte derangement. Inflammatory markers and procalcitonin are not elevated at all. Her viral testing is also negative. An ultrasound was obtained and the ultrasound demonstrates a cyst, but no evidence of an abscess or other inflammatory change. A tick panel has been sent off to further evaluate her fever at home. At this time I do not feel that the patient needs antibiotics or that this is an abscess. However could turn into 1 if the cyst becomes infected. At this time I do recommend close monitoring and follow-up as needed. The patient reports that she is going to [place] for a long vacation and because of this trip, I will write her a prescription for clindamycin, she should start it if she develops skin changes or persistent fever and pain of the left breast and should follow-up on her return. PFSH All Active Problems (Updated 09/08/24 @ 13:20 by Karen Hoffman MD) Breast abscess (Acute) Infection of left breast (Acute) Breast cyst (Acute) Breast infection (Acute) Social History Smoking/Tobacco Use Status: Never Smoking risk assessment performed?: Yes Alcohol Intake: never Substance use type: does not use Housing: house Do you feel safe at home: Yes Do you feel safe in your relationship?: Yes
[2024-09-09 09:26] LABS: Lyme Ab w Rflx to Lyme Confirm Negative (Negative)
[2024-09-11 15:05] LABS: B. miyamotoi PCR Negative (Negative); Babesia divergens/MO-1 Negative (Negative); Ehrlichia muris eauclairensis Negative (Negative)
== END 2024-09-08 13:55 | disposition home or self-care (01) ==
PROVIDERS: Emergency Provider Emergency Medicine
DX: N61.0 Mastitis without abscess (principal); N60.02 Solitary cyst of left breast
CPT/HCPCS: 99283; 99284; 76642; 80053; 84145; 85652; 87637; 87798; 96365; 96367; 85025; 86140; 86618; J0131; J0737